=== PATIENT | male | born 1940 | race Caucasian/White ===

== ENCOUNTER 2020-09-12 19:50 | Observation (INO) | payer MEDICARE, SELFPAY ==
[2020-09-12] VITALS (14 sets, daily range): BP systolic 106–152; BP diastolic 54–122; PULSE 65–88; RESP 17–21; TEMP 36.6–36.7; O2SAT 95–99
--- NOTE | ~2020-09-12 | CT_ITS ---
EXAMINATION: CT brain wo con DATE: 09/12/2020 20:49 INDICATION: Confusion, altered mental status. TECHNIQUE: Computed tomography (CT) of the head was performed without intravenous contrast. The mA wa s adjusted according to patient size. Iterative reconstruction technique was employed. Exam dose: 60 5.33 mGy-cm total exam DLP. COMPARISON: None FINDINGS: Vertebral, basilar and carotid siphon internal carotid artery calcifications are noted. There is nonspecific diminished attenuation of the cerebral white matter, likely due to chronic small vessel ischemic changes. There is prominent cerebral and cerebellar volume loss. No intracranial mass lesion or hemorrhage or cerebrovascular accident is evident. There is minimal ba fide ganglia calcification. No subdural or epidural hematoma. There are small fluid levels and/or soft tissue thickening of the maxillary sinuses. The paranasal si nuses and mastoid air cells are otherwise unremarkable. No fracture or bone destruction of the cranial vault. IMPRESSION: Cerebral atherosclerosis and chronic small vessel ischemic changes of cerebral white mat ter Prominent cerebral and cerebellar volume loss No acute intracranial finding Reviewed, dictated and finalized at [facility]. Reviewed, dictated and finalized at [facility]. IMPRESSION: Cerebral atherosclerosis and chronic small vessel ischemic changes of cerebral white matter Prominent cerebral and cerebellar volume loss No acute intracranial finding
--- NOTE | ~2020-09-12 | XR_ITS ---
XR chest 1V DATE: 09/12/2020 20:54 INDICATION: Transient alteration of awareness TECHNIQUE: AP chest COMPARISON: None FINDINGS: Heart size is within normal range. There is aortic arch calcification. No hilar or mediasti nal enlargement. Mild bilateral apical scarring. No pulmonary infiltrate or consolidation, pleural effusion or pulmona ry vascular congestion or pneumothorax is detected. Diffuse osteopenia. Probable old lateral left fifth and sixth rib fracture deformities. Degenerative spurring of the thoracic spine. IMPRESSION: No active cardiac pulmonary disease Reviewed, dictated and finalized at [facility].
--- NOTE | 2020-09-12 20:13 | ECG_ITS ---
Measurements Intervals [place] Rate: 71 P: 52 W[place]: 290 QRS: -13 QRSD: 97 T: 75 QT: 417 QTc: 453 Interpretive Statements SINUS RHYTHM EARLY PRECORDIAL R/S TRANSITION BORDERLINE ST-T WAVE ABNORMALITY- ANTEROLAT/HIGH LAT LEADS BASELINE ARTIFACT- I, II, III, AVR, AVL, AVF, V1-V6 BORDERLINE ECG Electronically Signed On 09-13-2020 7:44:55 CDT by Colin Pettit D.O.
[2020-09-12 21:07] LABS: Basophils Percent Auto 0.4 % (0.2-1.2); Eosinophils Percent Auto 0.4 % (0-4.4); Hemoglobin 14.7 g/dL (14.0-18.0); Immature Granulocyte Absolute 0.03 K/mm3 (0.00-0.031); Immature Granulocyte Percent A 0.4 % (0-0.5); Lymphocytes Absolute Auto 1.34 K/mm3 (0.9-3.2); Lymphocytes Percent Auto 18.8 % (18.3-44.2); Mean Corpuscular HGB Conc 33.4 g/dl (32-36); Mean Corpuscular Hemoglobin 32.3 pg (26-34); Mean Corpuscular Volume 96.7 fl (80-100); Monocytes Absolute Auto 0.8 K/mm3 (0.1-0.6); Monocytes Percent Auto 10.6 % (2.6-8.5); Neutrophils Percent Auto 69.4 % (45.5-73.1); Platelet Count Result 215 k/mm3 (150-375); Red Blood Count 4.55 M/mm3 (4.6-6.20); Red Cell Distribution Width 12.9 % (11.5-14.5); White Blood Count 7.1 K/mm3 (4.5-10.0)
[2020-09-12 21:18] LABS: Alanine Aminotransferase 51 U/L (4-50); Albumin Level 3.7 g/dL (3.5-5.1); Alkaline Phosphatase 108 U/L (38-126); Anion Gap 8 mmol/L (8-16); Aspartate Amino Transferase 52 U/L (17-59); Blood Urea Nitrogen 10 mg/dL (9-20); Calcium 9.4 mg/dL (8.4-10.2); Carbon Dioxide 27 mmol/L (22-30); Chloride 101 mmol/L (98-107); Creatine Kinase 66 U/L (55-170); Estimated Glomerular Filt Rate 58; Glucose 88 mg/dL (75-110); Lipase 47 U/L (23-300); Potassium 3.9 mmol/L (3.4-5.0); Sodium 136 mmol/L (137-145)
[2020-09-12 21:19] LABS: INR 0.9; Prothrombin Time 12.9 Seconds (11.1-14.7)
[2020-09-12 21:20] LABS: Partial Thromboplastin Time 26.7 SECONDS (22.3-36.8)
[2020-09-12 21:29] LABS: Troponin I < 0.012 ng/mL (0.000-0.034)
[2020-09-12 22:12] LABS: Add Urine Microscopic? YES; Appearance Urine Clear (Clear); Bacteria Urine 4+ /hpf; Bilirubin Urine Negative (Negative); Blood Urine 1+ (Negative); Color Urine Amber (Yellow); Glucose Urine UA Negative (Negative); Ketones Urine Negative (Negative); Leukocyte Esterase Ur 1+ LEU/UL (Negative); Mucus Urine Rare /lpf; Nitrate Urine Positive (Negative); Protein Urine 1+ mg/dL (Negative); RBC Urine 0-2 /hpf (0-2); Specific Grav Ur 1.016 (1.001-1.035); Urobilinogen Urine Negative mg/dL (<2.0); WBC Urine 16-20 /hpf
--- NOTE | 2020-09-12 22:49 | PC.NURSE ---
spoke to Phuong his sister [phone] and his son Cristian [phone]. pt is more altered than normal. son states over the past few years patient has become more combative. son states he spoke with the patients sisters today and they both state he is more altered than normal. son states patient is able to think out a plan but unable to remember how to do it. pt was able to think about going to [place] today, packed his car, fixed his car but once he started driving was unaware of where he was going or why. pt is cooperative with staff in the ED.
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
--- NOTE | 2020-09-13 00:47 | PC.NURSE ---
Called 2x to give report. Floor nurse states the nurse for the pt is in another room and she will have her call me back.
[2020-09-13 01:10] VITALS: BP 138/63; PULSE 71; RESP 16; TEMP 36.3; O2SAT 99; BMI 19.3
--- NOTE | 2020-09-13 01:41 | ADMGEN ---
This patient, Andres Kirby, was admitted to [facility] Surg Room 331-01. Patient/family oriented to hospital policies and general routines including ID bracelet, bed and alarms, visiting hours, pain management, procedures, bathroom and other care routines, personal items, smoking policy, room service/diet, and visiting hours. Information on how to activate the Rapid Response Team has been discussed. Patient/Family are encouraged to report perceived risks to care and to ask questions if they do not understand what they are told or what they should do.
--- NOTE | 2020-09-13 01:42 | PC.NURSE ---
Unable to fully admit patient do to son not knowing information about his dad. Son not aware of health history, medications or how his dad has been functioning on his own. Unable to get a hold of his sister
[2020-09-13] MEDS: SODIUM CHLORIDE 0.9% IV 1,000 ML 75 ML IV CONT (03:24)
[2020-09-13 04:00] VITALS: BP 131/62; PULSE 67; RESP 18; TEMP 36.8; O2SAT 95
--- NOTE | 2020-09-13 06:48 | PC.NURSE ---
second attempt made to contact sister tara in order to get more information about patient
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
[2020-09-13 10:34] VITALS: O2SAT 98
== END 2020-09-13 12:25 | disposition home or self-care (01) ==
LOC: ANHED 23:33 → ANH3MEDSUR 09-13 07:20
PROVIDERS: Emergency Medicine Emergency Medical Services; Admitting Provider Internal Medicine; Emergency Provider Family Medicine; Visit Provider Internal Medicine
DX: N39.0 Urinary tract infection, site not specified (principal); R41.0 Disorientation, unspecified; Z87.891 Personal history of nicotine dependence
CPT/HCPCS: 36415; 70450; 71045; 80053; 81001; 82550; 83690; 84484; 85025; 85610; 85730; 87077; 87086; 87186; 93005; 96365; 99199; 99285; J0696; J7030